=== PATIENT | female | born 1960 | race Two or more races ===

== ENCOUNTER 2017-02-07 17:00 | Emergency (ER) | payer OTHER ==
[~2017-02-07] VITALS: Ht 157.5 cm; Wt 48.5 kg
[2017-02-07 17:16] VITALS: BP 127/65
[2017-02-07] MEDS ORDERED: predniSONE 20 MG TABLET PO ONE (17:30)
[2017-02-07 17:39] LABS: BASOPHILS % (AUTO) 1.1 % (0.0-2.0); EOSINOPHILS # (AUTO) 0.1 /CMM (0.0-0.7); EOSINOPHILS % (AUTO) 1.7 % (0.0-6.0); HEMATOCRIT 43 % (33-45); HEMOGLOBIN 14.9 g/dL (11.5-14.8); LYMPHOCYTES # (AUTO) 0.8 /CMM (0.8-4.8); LYMPHOCYTES % (AUTO) 18.3 % (20.0-44.0); MEAN CORPUSCULAR HEMOGLOBIN 29 PG (26.0-33.0); MEAN CORPUSCULAR HGB CONC 35 g/dl (31.0-36.0); MEAN CORPUSCULAR VOLUME 85 fL (82-100); MONOCYTES # (AUTO) 0.5 /CMM (0.1-1.30); MONOCYTES % (AUTO) 11.9 % (2.0-12.0); NEUTROPHILS # (AUTO) 3.1 /CMM (1.8-8.9); PLATELET COUNT (AUTO) 219 /CMM (150-450); RDW COEFFICIENT OF VARIATION 12.3 (11.5-15.0); WHITE BLOOD COUNT (AUTO) 4.5 K/uL (4.3-11.0)
[2017-02-07 17:45] LABS: CREATININE 0.6 mg/dL (0.6-1.3); POTASSIUM 3.6 mmol/L (3.5-5.1)
[2017-02-07 18:03] LABS: ALBUMIN 4.1 g/dL (3.4-5.0); BILIRUBIN,DIRECT 0.1 mg/dL (0.0-0.2); BILIRUBIN,TOTAL 0.5 mg/dL (0.2-1.0); TOTAL PROTEIN, SERUM 7.5 g/dL (6.4-8.2)
[2017-02-07] MEDS ORDERED: predniSONE 20 MG TABLET ONE (18:15)
== END 2017-02-07 18:23 | disposition home or self-care (01) ==
LOC: ER 17:08
DX: L25.9 Unspecified contact dermatitis, unspecified cause (principal); J06.9 Acute upper respiratory infection, unspecified; E03.9 Hypothyroidism, unspecified
CPT/HCPCS: 36415; 80048; 80076; 85025; 99284; A4606; J7512; Z7610

== ENCOUNTER 2021-06-22 05:32 | Emergency (ER) | payer OTHER ==
[~2021-06-22] VITALS: Ht 157.5 cm; Wt 52.2 kg
--- NOTE | 2021-06-22 05:46 | NUR ---
pt bibself, c/o of generalized hives, since sunday. pt denies sob and difficulty swallowing. pt is [id number]. upon assessment, redness and hives noted on extremities and face. pt is attached to monitor with call light within reach.
[2021-06-22] MEDS ORDERED: predniSONE 20 MG TABLET ONE (06:26)
[2021-06-22] MEDS ORDERED: predniSONE 50 MG TABLET PO ONE (06:30)
[2021-06-22] MEDS ORDERED: PRED20TA PO (06:33)
[2021-06-22] MEDS ORDERED: EPIN0.3P3 IJ (06:34)
--- NOTE | 2021-06-22 06:44 | NUR ---
Patient discharged to home in stable condition. Written and verbal after care instructions given. Patient verbalizes understanding of instruction. pt is ambulatory with steady gait.
[2021-06-22 06:47] VITALS: BP 150/81
== END 2021-06-22 06:42 | disposition home or self-care (01) ==
LOC: ER 05:40
DX: L50.9 Urticaria, unspecified (principal); E03.9 Hypothyroidism, unspecified
CPT/HCPCS: 99283; J7512